=== PATIENT | male | born 1985 | race Asian ===

== ENCOUNTER 2017-10-22 15:55 | Inpatient (IN) | payer OTHER ==
[2017-10-22 18:02] VITALS: BMI 25.0
--- NOTE | 2017-10-22 20:31 | HP ---
CIWA Score - CIWA Score Nausea/Vomitin-Int. Nausea w/Dry Heave Muscle Tremors: 4-Moderate,w/Arms Extend Anxiety: 4-Mod. Anxious/Guarded Agitation: 4-Moderately Restless Paroxysmal Sweats: No Perspiration Orientation: 2-Disoriented Date<2 days Tacttile Disturbances: 2-Mild Itch/Numbness/Burn Auditory Disturbances: 0-None Visual Disturbances: 0-None Headache: 0-None Present CIWA-Ar Total Score: 20 Admission ROS S - HPI Chief Complaint: "I NEED HELP WITH ALCOHOL" Allergies/Adverse Reactions: Allergies Allergy/AdvReac Type Severity Reaction Status Date / Time No Known Allergies Allergy Verified 10/22/17 19:17 History of Present Illness: 32 Y.O. MALE WITH LONG HX/O ALCOHOLISM HERE FOR DETOX. CLIENT WAS REFERRED BY [facility] AFTER BEING STABILIZED FOR WITHDRAWAL SX'S. THIS IS CLIENTS FIRST TIME IN DETOX. HE HAS CEREBRAL PALSY. DENIES ANY SIGNIFICANT CLEAN TIME. Exam Limitations: Clinical Condition, Physical Impairment (AMBULATES WITH WALKER AND CANE. WC FOR LONG DISTANCE), Other (CEREBRAL PALSY) - Ebola screening Have you traveled outside of the country in the last 21 days: No (N) Have you had contact with anyone from an Ebola affected area: No Have you been sick,other than usual withdrawal symptoms: No Do you have a fever: No - Review of Systems Constitutional: Chills, Loss of Appetite, Night Sweats, Changes in sleep EENT: reports: No Symptoms Reported Respiratory: reports: No Symptoms reported Cardiac: reports: No Symptoms Reported GI: reports: Nausea, Poor Appetite, Poor Fluid Intake, Abdominal cramping, Other (DRY HEAVES) : reports: Incontinence (AT TIMES WEARS INCONTINENT BRIEFS) Musculoskeletal: reports: No Symptoms Reported Integumentary: reports: No Symptoms Reported Neuro: reports: Seizure (ETOH RELATED), Tremors, Unsteady Gait, Ataxia, Other ( CEREBRAL PALSY) Endocrine: reports: No Symptoms Reported Hematology: reports: No Symptoms Reported Psychiatric: reports: Anxious Other Systems: Reviewed and Negative Patient History - Patient Medical History Hx Anemia: No Hx Asthma: No Hx Chronic Obstructive Pulmonary Disease (COPD): No Hx Cancer: No Hx Cardiac Disorders: No Hx Congestive Heart Failure: No Hx Hypertension: No Hx Hypercholesterolemia: No Hx Pacemaker: No HX Cerebrovascular Accident: No Hx Seizures: Yes (alcohol related 4 mos) Hx Dementia: No Hx Diabetes: No Hx Gastrointestinal Disorders: No Hx Liver Disease: No Hx Genitourinary Disorders: No Hx Sexually Transmitted Disorders: No Hx Renal Disease (ESRD): No Hx Thyroid Disease: No Hx Human Immunodeficiency Virus (HIV): No Hx Hepatitis C: No Hx Depression: No Hx Suicide Attempt: No Hx Bipolar Disorder: No Hx Schizophrenia: No Other Medical History: DENIES - Patient Surgical History Past Surgical History: No - PPD History 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 History Hx Alcohol Use: Yes Hx Substance Use: Yes Substance Use Type: Alcohol Hx Substance Use Treatment: No - Substances Abused Alcohol Route: Oral Frequency: Daily Amount used: vodka 1 pint Age of first use: 17 Date of Last Use: 10/22/17 Family Disease History - Family Disease History Family Disease History: Diabetes: Father (HTN), Mother (HTN), Heart Disease: Father, Mother Admission Physical Exam BHS - Vital Signs Vital Signs: Vital Signs - 24 hr 10/22/17 18:00 Temperature 98.1 F Pulse Rate 102 H Respiratory 20 Rate Blood Pressure 147/97 - Physical General Appearance: Yes: Appropriately Dressed, Mild Distress, Tremorous, Anxious, Other (PT WITH CEREBRAL PALSY, ATAXIA POOR COORDINATION) HEENTM: Yes: EOMI, Normocephalic, Normal Voice, ADALBERTO, Pharynx Normal Respiratory: Yes: Chest Non-Tender, Lungs Clear, Normal Breath Sounds, No Respiratory Distress, No Accessory Muscle Use Neck: Yes: No masses,lesions,Nodules, Supple, Trachea in good position Breast: Yes: Breast Exam Deferred Cardiology: Yes: Regular Rhythm, Regular Rate, S1, S2 Abdominal: Yes: Normal Bowel Sounds, Non Tender, Soft Genitourinary: Yes: Within Normal Limits Back: Yes: Normal Inspection Musculoskeletal: Yes: Other (ATAXIA, POOR HAND AND LEG COORDINATION,) Extremities: Yes: Normal Capillary Refill, Non-Tender, Tremors Neurological: Yes: Alert, Other (CEREBRAL PALSY) Integumentary: Yes: Normal Color, Dry, Warm Lymphatic: Yes: Within Normal Limits - Diagnostic (1) Alcohol dependence with uncomplicated withdrawal Current Visit: Yes Status: Chronic (2) Cerebral palsy Current Visit: Yes Status: Chronic Qualifiers: Cerebral palsy type: unspecified type Qualified Code(s): G80.9 - Cerebral palsy, unspecified Cleared for Admission [facility] - Detox or Rehab [facility] Level of Care: Medically Managed Detox Regimen/Protocol: Librium S Breath Alcohol Content Breath Alcohol Content: 0 Urine Drug Screen - Results Drug Screen Negative: No Urine Drug Screen Results: BZO-Benzodiazepines
[2017-10-22] MEDS ORDERED: guaiFENesin/D-METHORPHAN HB 10 ML UNIT-DOSE CUPS PO PRN (20:44)
[2017-10-22] MEDS ORDERED: MAGNESIUM HYDROX 2400MG/30ML ORAL SUSPENSION 30 ML CUP PO PRN (20:44)
[2017-10-22] MEDS ORDERED: chlordiazePOXIDE HCL 25 MG CAPSULE PO PRN (20:44)
[2017-10-22] MEDS ORDERED: MAGNESIUM CITRATE 300 ML BOTTLE PO PRN (20:44)
[2017-10-22] MEDS ORDERED: P-EPHED 60MG/TRIPROLIDI 2.5MG TABLET PO PRN (20:44)
[2017-10-22] MEDS ORDERED: IBUPROFEN 400 MG TABLET (FP) PO PRN (20:44)
[2017-10-22] MEDS ORDERED: MENTHOL/PHENOL 1 EACH UD MM PRN (20:44)
[2017-10-22] MEDS ORDERED: MAG HYDROX/AL HYDROX/SIMETH 30 ML UNIT-DOSE CUP PO PRN (20:44)
[2017-10-22] MEDS ORDERED: hydrOXYzine PAMOATE 50 MG CAPSULE (FP) PO PRN (20:44)
[2017-10-22] MEDS ORDERED: ACETAMINOPHEN 325 MG TABLET (FP) PO PRN (20:44)
[2017-10-22] MEDS ORDERED: LOPERAMIDE HCL 2 MG CAPSULE PO PRN (20:44)
[2017-10-22] MEDS ORDERED: MELATONIN 5 MG TABLETS PO PRN (21:14)
[2017-10-22] MEDS ORDERED: MELATONIN 5 MG TABLETS PO SCH (22:00)
[2017-10-22] MEDS: chlordiazePOXIDE HCL 25 MG CAPSULE PO SCH (22:58)
[2017-10-22] MEDS: THIAMINE HCL 100 MG TABLET (FP) PO SCH (22:59)
[2017-10-23 00:34] LABS: URINE APPEARANCE CLEAR; URINE BILIRUBIN NEGATIVE (<2.0 mg/dL); URINE BLOOD NEGATIVE (NEGATIVE); URINE COLOR AMBER; URINE GLUCOSE (UA) NEGATIVE (NEGATIVE); URINE KETONE NEGATIVE (NEGATIVE); URINE LEUK ESTERASE NEGATIVE (NEGATIVE); URINE NITRITE NEGATIVE (NEGATIVE); URINE UROBILINOGEN 4.0 E.U/dl mg/dL (0.2-1.0)
[2017-10-23 00:37] LABS: URINE PROTEIN 1+ (NEGATIVE)
[2017-10-23 00:49] LABS: EPI CELLS RARE /HPF (FEW); URINE HYALINE CAST 1 /lpf; URINE MUCUS RARE
[2017-10-23] MEDS: chlordiazePOXIDE HCL 25 MG CAPSULE PO SCH ×4 (06:00→22:29)
[2017-10-23 10:11] LABS: HEMATOCRIT 36.3 % (35.4-49); HEMOGLOBIN 12.4 GM/dL (11.7-16.9); MCH 34.7 pg (25.7-33.7); MCHC 34.2 g/dl (32.0-35.9); MEAN CELL VOLUME 101.4 fl (80-96); MEAN PLT VOLUME 9.1 fl (7.5-11.1); RBC 3.58 M/mm3 (4.00-5.60); RDW 14.1 % (11.9-15.9); WHITE BLOOD COUNT 4.7 K/mm3 (4.0-10.0)
[2017-10-23 10:19] LABS: PLATELET COUNT 36 K/MM3 (134-434)
[2017-10-23 10:37] LABS: ALBUMIN 3.7 g/dl (3.4-5.0); ANION GAP 12 (8-16); BLOOD UREA NITROGEN 8 mg/dL (7-18); CALCIUM 8.9 mg/dL (8.5-10.1); CHLORIDE 99 mmol/L (98-107); CO2 28 mmol/L (21-32); POTASSIUM 3.4 mmol/L (3.5-5.1); SODIUM 139 mmol/L (136-145)
[2017-10-23 10:43] LABS: ALK PHOS 110 U/L (45-117); BILIRUBIN,TOTAL 7.4 mg/dL (0.2-1.0); CREATININE 0.6 mg/dL (0.7-1.3); GLUCOSE,RANDOM 86 mg/dL (74-106); SGOT/AST 57 U/L (15-37); SGPT/ALT 33 U/L (12-78); TOT PROT 7.8 g/dl (6.4-8.2)
[2017-10-23] MEDS: PRENATAL VITAMINS W/ FOLIC ACID TABLET (FP) PO SCH (11:27)
--- NOTE | 2017-10-23 12:43 | PN ---
[facility] CIWA - CIWA Score Nausea/Vomitin-No Nausea/No Vomiting Muscle Tremors: 4-Moderate,w/Arms Extend Anxiety: 4-Mod. Anxious/Guarded Agitation: 3 Paroxysmal Sweats: 1-Minimal Palms Moist Orientation: 0-Oriented Tacttile Disturbances: 3-Moderate Itch/Numb/Burn Auditory Disturbances: 0-None Visual Disturbances: 0-None Headache: 0-None Present CIWA-Ar Total Score: 15 S Progress Note (SOAP) Subjective: C/O TREMORS,PAIN ON BOTH ARMS. DENIES TRUAMA. REPORTS HX CEREBRAL PALSY. USING WC FOR AMBULATION. Objective: 10/23/17 12:40 Vital Signs Temperature 97.8 F 10/23/17 09:41 Pulse Rate 93 H 10/23/17 09:41 Respiratory Rate 20 10/23/17 09:41 Blood Pressure 153/89 10/23/17 09:41 O2 Sat by Pulse Oximetry (%) Laboratory Last Values WBC 4.7 K/mm3 (4.0-10.0) 10/23/17 07:00 RBC 3.58 M/mm3 (4.00-5.60) L 10/23/17 07:00 Hgb 12.4 GM/dL (11.7-16.9) 10/23/17 07:00 Hct 36.3 % (35.4-49) 10/23/17 07:00 MCV 101.4 fl (80-96) H 10/23/17 07:00 MCH 34.7 pg (25.7-33.7) H 10/23/17 07:00 MCHC 34.2 g/dl (32.0-35.9) 10/23/17 07:00 RDW 14.1 % (11.9-15.9) 10/23/17 07:00 Plt Count 36 K/MM3 (134-434) L* 10/23/17 07:00 MPV 9.1 fl (7.5-11.1) 10/23/17 07:00 Sodium 139 mmol/L (136-145) 10/23/17 07:00 Potassium 3.4 mmol/L (3.5-5.1) L 10/23/17 07:00 Chloride 99 mmol/L (98-107) 10/23/17 07:00 Carbon Dioxide 28 mmol/L (21-32) 10/23/17 07:00 Anion Gap 12 (8-16) 10/23/17 07:00 BUN 8 mg/dL (7-18) 10/23/17 07:00 Creatinine 0.6 mg/dL (0.7-1.3) L 10/23/17 07:00 Creat Clearance w eGFR > 60 (>60) 10/23/17 07:00 Random Glucose 86 mg/dL (74-106) 10/23/17 07:00 Calcium 8.9 mg/dL (8.5-10.1) 10/23/17 07:00 Total Bilirubin 7.4 mg/dL (0.2-1.0) H 10/23/17 07:00 AST 57 U/L (15-37) H 10/23/17 07:00 ALT 33 U/L (12-78) 10/23/17 07:00 Alkaline Phosphatase 110 U/L (45-117) 10/23/17 07:00 Total Protein 7.8 g/dl (6.4-8.2) 10/23/17 07:00 Albumin 3.7 g/dl (3.4-5.0) 10/23/17 07:00 Urine Color Erika 10/22/17 22:14 Urine Appearance Clear 10/22/17 22:14 Urine pH 7.0 (5.0-8.0) 10/22/17 22:14 Ur Specific [place] 1.021 (1.001-1.035) 10/22/17 22:14 Urine Protein 1+ (NEGATIVE) H 10/22/17 22:14 Urine Glucose (UA) Negative (NEGATIVE) 10/22/17 22:14 Urine Ketones Negative (NEGATIVE) 10/22/17 22:14 Urine Blood Negative (NEGATIVE) 10/22/17 22:14 Urine Nitrite Negative (NEGATIVE) 10/22/17 22:14 Urine Bilirubin Negative (<2.0 mg/dL) 10/22/17 22:14 Urine Urobilinogen 4.0 e.u/dl mg/dL (0.2-1.0) 10/22/17 22:14 Ur Leukocyte Esterase Negative (NEGATIVE) 10/22/17 22:14 Urine WBC (Auto) 1 /hpf (3-5) 10/22/17 22:14 Urine RBC (Auto) 2 /hpf (0-3) 10/22/17 22:14 Ur Epithelial Cells Rare /HPF (FEW) 10/22/17 22:14 Hyaline Casts 1 /lpf 10/22/17 22:14 Urine Mucus Rare 10/22/17 22:14 RPR Titer Nonreactive (NONREACTIVE) 10/23/17 07:00 Plt count 36 Assessment: 10/23/17 12:40 WITHDRAWAL SX BORDERLINE HYPOKALEMIA LOW PLATELET Plan: CONTINUE DETOX KCL LIQ 20 MEQ PO DAILY INCREASE PO FLUIDS URINAL AT BEDSIDE
--- NOTE | 2017-10-23 12:57 | CONSULT ---
[facility] Psychiatric Consult - Data Date of interview: 10/23/17 Admission source: [facility] Identifying data: First admission to [facility] for this 32 y/o [place]born male seeking detox treatment on for alcohol dependence.Patient is single without children,domiciled (lives with his parents),disabled (cerebral palsy) and supported on SSI benefits. Substance Abuse History: Discussed with patient.Mr Rodriguez admits to a 15 year history of alcohol abuse (consumes 1 pint of vodka daily). Details in the [facility] report as follows : Smoking history: Never smoked. Have you smoked in the past 12 months: No. Cigars Per Day: 0. Hx Chewing Tobacco Use: No. Initiated information on smoking cessation: No. - Substance & Tx. History. Hx Alcohol Use: Yes. Hx Substance Use: Yes. Substance Use Type: Alcohol. Hx Substance Use Treatment: No. - Substances Abused. Alcohol. Route: Oral. Frequency: Daily. Amount used: vodka 1 pint. Age of first use: 17. Date of Last Use: 10/22/17 Medical History: History of cerebral palsy (wheelchair-bound) and withdrawal- related seizures. Psychiatric History: Patient denies. Physical/Sexual Abuse/Trauma History: Patient denies history of abuse. Additional Comment: Urine Drug Screen Results: BZO-Benzodiazepines.Noted. Mental Status Exam - Mental Status Exam Alert and Oriented to: Time, Place, Person Cognitive Function: Grossly Intact Patient Appearance: Well Groomed (found lying in bed,fully awake) Mood: Withdrawn, Anxious Affect: Mood Congruent Patient Behavior: Appropriate (friendly), Cooperative Speech Pattern: Clear (coherent and relevant) Voice Loudness: Normal Thought Process: Goal Oriented Thought Disorder: Not Present Hallucinations: Denies Suicidal Ideation: Denies Homicidal Ideation: Denies Insight/Judgement: Poor Sleep: Well Appetite: Good (as per self-report) Gait/Station: Other (patient is disabled ; needs staff for transfer from bed to wheelchair) Psychiatric Findings - Problem List ([place] 1, 2,3) (1) Alcohol dependence with uncomplicated withdrawal Current Visit: Yes Status: Acute - Initial Treatment Plan Initial Treatment Plan: Psychoeducation and support.Nursing care.Falls precautions.Detoxification in progress.Observation.
[2017-10-23] MEDS ORDERED: POTASSIUM CHLORIDE ORAL LIQUID 20 MEQ/15 ML PO ONE (13:50)
--- NOTE | 2017-10-23 14:45 | PN ---
[facility] Progress Note Note: PT HAS JUANA HEMATURIA LATE THIS MORNING. DENIED ANY EPISODE EARLIER TODAY OR LAST NIGHT. PT IS HERE FOR ALCOHOL DETOX ADMITTED ON 10/22/17. PT HAS A HX OF CEREBRAL PALSY WITH UNSTEADY GAIT AND ALCOHOL RELATED SEIZURES. NEEDS ASSISTANCE WITH MOST ADLs. USES WHEEL CHAIR FOR AMBULATION HERE BUT REPORTS USE OF CANE AND WALKER AT HOME. Vital Signs 10/23/17 10/23/17 09:41 13:47 Temperature 97.8 F 98.9 F Pulse Rate 93 H 82 Respiratory 20 20 Rate Blood Pressure 153/89 130/84 Laboratory Last Values WBC 4.7 K/mm3 (4.0-10.0) 10/23/17 07:00 RBC 3.58 M/mm3 (4.00-5.60) L 10/23/17 07:00 Hgb 12.4 GM/dL (11.7-16.9) 10/23/17 07:00 Hct 36.3 % (35.4-49) 10/23/17 07:00 MCV 101.4 fl (80-96) H 10/23/17 07:00 MCH 34.7 pg (25.7-33.7) H 10/23/17 07:00 MCHC 34.2 g/dl (32.0-35.9) 10/23/17 07:00 RDW 14.1 % (11.9-15.9) 10/23/17 07:00 Plt Count 36 K/MM3 (134-434) L* 10/23/17 07:00 MPV 9.1 fl (7.5-11.1) 10/23/17 07:00 Sodium 139 mmol/L (136-145) 10/23/17 07:00 Potassium 3.4 mmol/L (3.5-5.1) L 10/23/17 07:00 Chloride 99 mmol/L (98-107) 10/23/17 07:00 Carbon Dioxide 28 mmol/L (21-32) 10/23/17 07:00 Anion Gap 12 (8-16) 10/23/17 07:00 BUN 8 mg/dL (7-18) 10/23/17 07:00 Creatinine 0.6 mg/dL (0.7-1.3) L 10/23/17 07:00 Creat Clearance w eGFR > 60 (>60) 10/23/17 07:00 Random Glucose 86 mg/dL (74-106) 10/23/17 07:00 Calcium 8.9 mg/dL (8.5-10.1) 10/23/17 07:00 Total Bilirubin 7.4 mg/dL (0.2-1.0) H 10/23/17 07:00 AST 57 U/L (15-37) H 10/23/17 07:00 ALT 33 U/L (12-78) 10/23/17 07:00 Alkaline Phosphatase 110 U/L (45-117) 10/23/17 07:00 Total Protein 7.8 g/dl (6.4-8.2) 10/23/17 07:00 Albumin 3.7 g/dl (3.4-5.0) 10/23/17 07:00 Urine Color Erika 10/22/17 22:14 Urine Appearance Clear 10/22/17 22:14 Urine pH 7.0 (5.0-8.0) 10/22/17 22:14 Ur Specific [place] 1.021 (1.001-1.035) 10/22/17 22:14 Urine Protein 1+ (NEGATIVE) H 10/22/17 22:14 Urine Glucose (UA) Negative (NEGATIVE) 10/22/17 22:14 Urine Ketones Negative (NEGATIVE) 10/22/17 22:14 Urine Blood Negative (NEGATIVE) 10/22/17 22:14 Urine Nitrite Negative (NEGATIVE) 10/22/17 22:14 Urine Bilirubin Negative (<2.0 mg/dL) 10/22/17 22:14 Urine Urobilinogen 4.0 e.u/dl mg/dL (0.2-1.0) 10/22/17 22:14 Ur Leukocyte Esterase Negative (NEGATIVE) 10/22/17 22:14 Urine WBC (Auto) 1 /hpf (3-5) 10/22/17 22:14 Urine RBC (Auto) 2 /hpf (0-3) 10/22/17 22:14 Ur Epithelial Cells Rare /HPF (FEW) 10/22/17 22:14 Hyaline Casts 1 /lpf 10/22/17 22:14 Urine Mucus Rare 10/22/17 22:14 RPR Titer Nonreactive (NONREACTIVE) 10/23/17 07:00 PLATELAT 36 URINE OUTPUT WITH JUANA BLOOD REPEAT UA;UC ORDERED PLAN:DISCUSSED WITH DR. SANDOVAL AT [facility] ER AND PT WILL BE TRANSFERED TO THE ER VIA AMBULANCE FOR EVALUATION AND POSSIBLE TREATMENT.
[2017-10-23 16:45] LABS: URINE APPEARANCE CLEAR; URINE BILIRUBIN NEGATIVE (<2.0 mg/dL); URINE BLOOD NEGATIVE (NEGATIVE); URINE COLOR AMBER; URINE GLUCOSE (UA) NEGATIVE (NEGATIVE); URINE KETONE NEGATIVE (NEGATIVE); URINE LEUK ESTERASE NEGATIVE (NEGATIVE); URINE NITRITE NEGATIVE (NEGATIVE); URINE UROBILINOGEN 4.0 E.U/dl mg/dL (0.2-1.0)
[2017-10-23 16:51] LABS: URINE PROTEIN 1+ (NEGATIVE)
[2017-10-23] MEDS: THIAMINE HCL 100 MG TABLET (FP) PO SCH (22:29)
[2017-10-24] MEDS: chlordiazePOXIDE HCL 25 MG CAPSULE PO SCH ×3 (06:23→17:53)
[2017-10-24] MEDS: POTASSIUM CHLORIDE ORAL LIQUID 20 MEQ/15 ML PO SCH (10:47)
[2017-10-24] MEDS: PRENATAL VITAMINS W/ FOLIC ACID TABLET (FP) PO SCH (10:47)
--- NOTE | 2017-10-24 11:15 | PN ---
[facility] CIWA - CIWA Score Nausea/Vomitin-No Nausea/No Vomiting Muscle Tremors: 4-Moderate,w/Arms Extend Anxiety: 4-Mod. Anxious/Guarded Agitation: 2 Paroxysmal Sweats: No Perspiration Orientation: 0-Oriented Tacttile Disturbances: 3-Moderate Itch/Numb/Burn Auditory Disturbances: 0-None Visual Disturbances: 0-None Headache: 0-None Present CIWA-Ar Total Score: 13 S Progress Note (SOAP) Subjective: SLIGHT ANXIETY,TREMORS,DENIES BLOOD IN URINE SINCE LAST EPISODE YESTERDAY. Objective: 10/24/17 11:15 Vital Signs Temperature 96.3 F L 10/24/17 09:35 Pulse Rate 92 H 10/24/17 09:35 Respiratory Rate 20 10/24/17 09:35 Blood Pressure 131/96 10/24/17 09:35 O2 Sat by Pulse Oximetry (%) Laboratory Last Values WBC 4.7 K/mm3 (4.0-10.0) 10/23/17 07:00 RBC 3.58 M/mm3 (4.00-5.60) L 10/23/17 07:00 Hgb 12.4 GM/dL (11.7-16.9) 10/23/17 07:00 Hct 36.3 % (35.4-49) 10/23/17 07:00 MCV 101.4 fl (80-96) H 10/23/17 07:00 MCH 34.7 pg (25.7-33.7) H 10/23/17 07:00 MCHC 34.2 g/dl (32.0-35.9) 10/23/17 07:00 RDW 14.1 % (11.9-15.9) 10/23/17 07:00 Plt Count 36 K/MM3 (134-434) L* 10/23/17 07:00 MPV 9.1 fl (7.5-11.1) 10/23/17 07:00 Sodium 139 mmol/L (136-145) 10/23/17 07:00 Potassium 3.4 mmol/L (3.5-5.1) L 10/23/17 07:00 Chloride 99 mmol/L (98-107) 10/23/17 07:00 Carbon Dioxide 28 mmol/L (21-32) 10/23/17 07:00 Anion Gap 12 (8-16) 10/23/17 07:00 BUN 8 mg/dL (7-18) 10/23/17 07:00 Creatinine 0.6 mg/dL (0.7-1.3) L 10/23/17 07:00 Creat Clearance w eGFR > 60 (>60) 10/23/17 07:00 Random Glucose 86 mg/dL (74-106) 10/23/17 07:00 Calcium 8.9 mg/dL (8.5-10.1) 10/23/17 07:00 Total Bilirubin 7.4 mg/dL (0.2-1.0) H 10/23/17 07:00 AST 57 U/L (15-37) H 10/23/17 07:00 ALT 33 U/L (12-78) 10/23/17 07:00 Alkaline Phosphatase 110 U/L (45-117) 10/23/17 07:00 Total Protein 7.8 g/dl (6.4-8.2) 10/23/17 07:00 Albumin 3.7 g/dl (3.4-5.0) 10/23/17 07:00 Urine Color Erika 10/23/17 15:00 Urine Appearance Clear 10/23/17 15:00 Urine pH 9.0 (5.0-8.0) H D 10/23/17 15:00 Ur Specific [place] 1.015 (1.001-1.035) 10/23/17 15:00 Urine Protein 1+ (NEGATIVE) H 10/23/17 15:00 Urine Glucose (UA) Negative (NEGATIVE) 10/23/17 15:00 Urine Ketones Negative (NEGATIVE) 10/23/17 15:00 Urine Blood Negative (NEGATIVE) 10/23/17 15:00 Urine Nitrite Negative (NEGATIVE) 10/23/17 15:00 Urine Bilirubin Negative (<2.0 mg/dL) 10/23/17 15:00 Urine Urobilinogen 4.0 e.u/dl mg/dL (0.2-1.0) 10/23/17 15:00 Ur Leukocyte Esterase Negative (NEGATIVE) 10/23/17 15:00 Urine WBC (Auto) No seen /hpf (3-5) 10/23/17 15:00 Urine RBC (Auto) 0-3 /hpf (0-3) 10/23/17 15:00 Ur Epithelial Cells Rare /HPF (FEW) 10/22/17 22:14 Hyaline Casts 1 /lpf 10/22/17 22:14 Urine Mucus Rare 10/22/17 22:14 RPR Titer Nonreactive (NONREACTIVE) 10/23/17 07:00 Assessment: 10/24/17 11:15 WITHDRAWAL SX Plan: CONTINUE DETOX
[2017-10-24] MEDS: chlordiazePOXIDE 5 MG CAPSULE PO SCH (22:43)
[2017-10-24] MEDS: THIAMINE HCL 100 MG TABLET (FP) PO SCH (22:43)
[2017-10-25] MEDS: chlordiazePOXIDE 5 MG CAPSULE PO SCH ×3 (05:59→17:12)
[2017-10-25] MEDS: POTASSIUM CHLORIDE ORAL LIQUID 20 MEQ/15 ML PO SCH (11:12)
[2017-10-25] MEDS: PRENATAL VITAMINS W/ FOLIC ACID TABLET (FP) PO SCH (11:12)
--- NOTE | 2017-10-25 14:54 | PN ---
S Progress Note (SOAP) Subjective: DECREASED ANXIETY,TREMORS,BODYACHES. PT WAS ABLE TO WALK FROM ROOM TO HIS COUNSELORS OFFICE AND BACK UNATTENDED BUT WITH CLOSE MONITORING. PT REPORTS HE GOES TO AN OUTPATIENT PROGRAM BY [facility] AND WILL BE GOING BACK THERE AFTER DISCHARGE. Objective: 10/25/17 14:53 Vital Signs Temperature 96.6 F L 10/25/17 13:56 Pulse Rate 116 H 10/25/17 13:56 Respiratory Rate 18 10/25/17 13:56 Blood Pressure 127/96 10/25/17 13:56 O2 Sat by Pulse Oximetry (%) Laboratory Last Values WBC 4.7 K/mm3 (4.0-10.0) 10/23/17 07:00 RBC 3.58 M/mm3 (4.00-5.60) L 10/23/17 07:00 Hgb 12.4 GM/dL (11.7-16.9) 10/23/17 07:00 Hct 36.3 % (35.4-49) 10/23/17 07:00 MCV 101.4 fl (80-96) H 10/23/17 07:00 MCH 34.7 pg (25.7-33.7) H 10/23/17 07:00 MCHC 34.2 g/dl (32.0-35.9) 10/23/17 07:00 RDW 14.1 % (11.9-15.9) 10/23/17 07:00 Plt Count 36 K/MM3 (134-434) L* 10/23/17 07:00 MPV 9.1 fl (7.5-11.1) 10/23/17 07:00 Sodium 139 mmol/L (136-145) 10/23/17 07:00 Potassium 3.4 mmol/L (3.5-5.1) L 10/23/17 07:00 Chloride 99 mmol/L (98-107) 10/23/17 07:00 Carbon Dioxide 28 mmol/L (21-32) 10/23/17 07:00 Anion Gap 12 (8-16) 10/23/17 07:00 BUN 8 mg/dL (7-18) 10/23/17 07:00 Creatinine 0.6 mg/dL (0.7-1.3) L 10/23/17 07:00 Creat Clearance w eGFR > 60 (>60) 10/23/17 07:00 Random Glucose 86 mg/dL (74-106) 10/23/17 07:00 Calcium 8.9 mg/dL (8.5-10.1) 10/23/17 07:00 Total Bilirubin 7.4 mg/dL (0.2-1.0) H 10/23/17 07:00 AST 57 U/L (15-37) H 10/23/17 07:00 ALT 33 U/L (12-78) 10/23/17 07:00 Alkaline Phosphatase 110 U/L (45-117) 10/23/17 07:00 Total Protein 7.8 g/dl (6.4-8.2) 10/23/17 07:00 Albumin 3.7 g/dl (3.4-5.0) 10/23/17 07:00 Urine Color Erika 10/23/17 15:00 Urine Appearance Clear 10/23/17 15:00 Urine pH 9.0 (5.0-8.0) H D 10/23/17 15:00 Ur Specific [place] 1.015 (1.001-1.035) 10/23/17 15:00 Urine Protein 1+ (NEGATIVE) H 10/23/17 15:00 Urine Glucose (UA) Negative (NEGATIVE) 10/23/17 15:00 Urine Ketones Negative (NEGATIVE) 10/23/17 15:00 Urine Blood Negative (NEGATIVE) 10/23/17 15:00 Urine Nitrite Negative (NEGATIVE) 10/23/17 15:00 Urine Bilirubin Negative (<2.0 mg/dL) 10/23/17 15:00 Urine Urobilinogen 4.0 e.u/dl mg/dL (0.2-1.0) 10/23/17 15:00 Ur Leukocyte Esterase Negative (NEGATIVE) 10/23/17 15:00 Urine WBC (Auto) No seen /hpf (3-5) 10/23/17 15:00 Urine RBC (Auto) 0-3 /hpf (0-3) 10/23/17 15:00 Ur Epithelial Cells Rare /HPF (FEW) 10/22/17 22:14 Hyaline Casts 1 /lpf 10/22/17 22:14 Urine Mucus Rare 10/22/17 22:14 RPR Titer Nonreactive (NONREACTIVE) 10/23/17 07:00 Assessment: 10/25/17 14:53 WITHDRAWAL SX Plan: CONTINUE DETOX
[2017-10-25] MEDS: THIAMINE HCL 100 MG TABLET (FP) PO SCH (22:48)
[2017-10-25] MEDS: chlordiazePOXIDE HCL 10 MG CAPSULE PO SCH (22:48)
[2017-10-26] MEDS: chlordiazePOXIDE HCL 10 MG CAPSULE PO SCH (05:55)
[2017-10-26 09:42] VITALS: BP 104/70; PULSE 74; TEMP 98.8
[2017-10-26] MEDS: POTASSIUM CHLORIDE ORAL LIQUID 20 MEQ/15 ML PO SCH (10:14)
[2017-10-26] MEDS: PRENATAL VITAMINS W/ FOLIC ACID TABLET (FP) PO SCH (10:15)
--- NOTE | 2017-10-26 10:19 | PN ---
S Progress Note (SOAP) Subjective: DETOX COMPLETED. ALERT O X 3. OOB AMBULATING WITH NO DISTRESS.PT MADE A PHONE CALL TO HIS MOTHER THIS MORNING TO BE PICKED UP. Objective: 10/26/17 10:18 Vital Signs Temperature 98.8 F 10/26/17 09:41 Pulse Rate 74 10/26/17 09:41 Respiratory Rate 18 10/26/17 09:41 Blood Pressure 104/70 10/26/17 09:41 O2 Sat by Pulse Oximetry (%) Laboratory Last Values WBC 4.7 K/mm3 (4.0-10.0) 10/23/17 07:00 RBC 3.58 M/mm3 (4.00-5.60) L 10/23/17 07:00 Hgb 12.4 GM/dL (11.7-16.9) 10/23/17 07:00 Hct 36.3 % (35.4-49) 10/23/17 07:00 MCV 101.4 fl (80-96) H 10/23/17 07:00 MCH 34.7 pg (25.7-33.7) H 10/23/17 07:00 MCHC 34.2 g/dl (32.0-35.9) 10/23/17 07:00 RDW 14.1 % (11.9-15.9) 10/23/17 07:00 Plt Count 36 K/MM3 (134-434) L* 10/23/17 07:00 MPV 9.1 fl (7.5-11.1) 10/23/17 07:00 Sodium 139 mmol/L (136-145) 10/23/17 07:00 Potassium 3.4 mmol/L (3.5-5.1) L 10/23/17 07:00 Chloride 99 mmol/L (98-107) 10/23/17 07:00 Carbon Dioxide 28 mmol/L (21-32) 10/23/17 07:00 Anion Gap 12 (8-16) 10/23/17 07:00 BUN 8 mg/dL (7-18) 10/23/17 07:00 Creatinine 0.6 mg/dL (0.7-1.3) L 10/23/17 07:00 Creat Clearance w eGFR > 60 (>60) 10/23/17 07:00 Random Glucose 86 mg/dL (74-106) 10/23/17 07:00 Calcium 8.9 mg/dL (8.5-10.1) 10/23/17 07:00 Total Bilirubin 7.4 mg/dL (0.2-1.0) H 10/23/17 07:00 AST 57 U/L (15-37) H 10/23/17 07:00 ALT 33 U/L (12-78) 10/23/17 07:00 Alkaline Phosphatase 110 U/L (45-117) 10/23/17 07:00 Total Protein 7.8 g/dl (6.4-8.2) 10/23/17 07:00 Albumin 3.7 g/dl (3.4-5.0) 10/23/17 07:00 Urine Color Erika 10/23/17 15:00 Urine Appearance Clear 10/23/17 15:00 Urine pH 9.0 (5.0-8.0) H D 10/23/17 15:00 Ur Specific [place] 1.015 (1.001-1.035) 10/23/17 15:00 Urine Protein 1+ (NEGATIVE) H 10/23/17 15:00 Urine Glucose (UA) Negative (NEGATIVE) 10/23/17 15:00 Urine Ketones Negative (NEGATIVE) 10/23/17 15:00 Urine Blood Negative (NEGATIVE) 10/23/17 15:00 Urine Nitrite Negative (NEGATIVE) 10/23/17 15:00 Urine Bilirubin Negative (<2.0 mg/dL) 10/23/17 15:00 Urine Urobilinogen 4.0 e.u/dl mg/dL (0.2-1.0) 10/23/17 15:00 Ur Leukocyte Esterase Negative (NEGATIVE) 10/23/17 15:00 Urine WBC (Auto) No seen /hpf (3-5) 10/23/17 15:00 Urine RBC (Auto) 0-3 /hpf (0-3) 10/23/17 15:00 Ur Epithelial Cells Rare /HPF (FEW) 10/22/17 22:14 Hyaline Casts 1 /lpf 10/22/17 22:14 Urine Mucus Rare 10/22/17 22:14 RPR Titer Nonreactive (NONREACTIVE) 10/23/17 07:00 Assessment: 10/26/17 10:19 NAD Plan: D/C PT TODAY TO BE PICKED UP BY HIS MOTHER.
--- NOTE | 2017-10-26 10:25 | DS ---
[facility] Detox Discharge Summary Admission Date: 10/22/17 Discharge Date: 10/26/17 - History Present History: Alcohol Dependence Additional Comments: DETOX COMPLETED. ALERT O X 3. NAD. 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. Pertinent Past History: PLEASE SEE DX BELOW. - Physical Exam Results Vital Signs: Vital Signs Temperature 98.8 F 10/26/17 09:41 Pulse Rate 74 10/26/17 09:41 Respiratory Rate 18 10/26/17 09:41 Blood Pressure 104/70 10/26/17 09:41 O2 Sat by Pulse Oximetry (%) Pertinent Admission Physical Exam Findings: WITHDRAWAL SX Laboratory Last Values WBC 4.7 K/mm3 (4.0-10.0) 10/23/17 07:00 RBC 3.58 M/mm3 (4.00-5.60) L 10/23/17 07:00 Hgb 12.4 GM/dL (11.7-16.9) 10/23/17 07:00 Hct 36.3 % (35.4-49) 10/23/17 07:00 MCV 101.4 fl (80-96) H 10/23/17 07:00 MCH 34.7 pg (25.7-33.7) H 10/23/17 07:00 MCHC 34.2 g/dl (32.0-35.9) 10/23/17 07:00 RDW 14.1 % (11.9-15.9) 10/23/17 07:00 Plt Count 36 K/MM3 (134-434) L* 10/23/17 07:00 MPV 9.1 fl (7.5-11.1) 10/23/17 07:00 Sodium 139 mmol/L (136-145) 10/23/17 07:00 Potassium 3.4 mmol/L (3.5-5.1) L 10/23/17 07:00 Chloride 99 mmol/L (98-107) 10/23/17 07:00 Carbon Dioxide 28 mmol/L (21-32) 10/23/17 07:00 Anion Gap 12 (8-16) 10/23/17 07:00 BUN 8 mg/dL (7-18) 10/23/17 07:00 Creatinine 0.6 mg/dL (0.7-1.3) L 10/23/17 07:00 Creat Clearance w eGFR > 60 (>60) 10/23/17 07:00 Random Glucose 86 mg/dL (74-106) 10/23/17 07:00 Calcium 8.9 mg/dL (8.5-10.1) 10/23/17 07:00 Total Bilirubin 7.4 mg/dL (0.2-1.0) H 10/23/17 07:00 AST 57 U/L (15-37) H 10/23/17 07:00 ALT 33 U/L (12-78) 10/23/17 07:00 Alkaline Phosphatase 110 U/L (45-117) 10/23/17 07:00 Total Protein 7.8 g/dl (6.4-8.2) 10/23/17 07:00 Albumin 3.7 g/dl (3.4-5.0) 10/23/17 07:00 Urine Color Erika 10/23/17 15:00 Urine Appearance Clear 10/23/17 15:00 Urine pH 9.0 (5.0-8.0) H D 10/23/17 15:00 Ur Specific [place] 1.015 (1.001-1.035) 10/23/17 15:00 Urine Protein 1+ (NEGATIVE) H 10/23/17 15:00 Urine Glucose (UA) Negative (NEGATIVE) 10/23/17 15:00 Urine Ketones Negative (NEGATIVE) 10/23/17 15:00 Urine Blood Negative (NEGATIVE) 10/23/17 15:00 Urine Nitrite Negative (NEGATIVE) 10/23/17 15:00 Urine Bilirubin Negative (<2.0 mg/dL) 10/23/17 15:00 Urine Urobilinogen 4.0 e.u/dl mg/dL (0.2-1.0) 10/23/17 15:00 Ur Leukocyte Esterase Negative (NEGATIVE) 10/23/17 15:00 Urine WBC (Auto) No seen /hpf (3-5) 10/23/17 15:00 Urine RBC (Auto) 0-3 /hpf (0-3) 10/23/17 15:00 Ur Epithelial Cells Rare /HPF (FEW) 10/22/17 22:14 Hyaline Casts 1 /lpf 10/22/17 22:14 Urine Mucus Rare 10/22/17 22:14 RPR Titer Nonreactive (NONREACTIVE) 10/23/17 07:00 HEMATURIA RESOLVED. 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
== END 2017-10-26 10:15 | disposition home or self-care (01) | DRG 775 ==
LOC: YASAS 15:55 → Y3N 19:19
PROVIDERS: ADMIT Internal Medicine; ATTEND Internal Medicine
PROC: HZ2ZZZZ Detoxification Services for Substance Abuse Treatment (ICD-10-PCS; principal; 2017-10-22)
DX: F10.230 Alcohol dependence with withdrawal, uncomplicated (principal); G40.509 Epileptic seizures related to external causes, not intractable, without status epilepticus; G80.4 Ataxic cerebral palsy; R31.0 Gross hematuria; R26.89 Other abnormalities of gait and mobility; Z99.3 Dependence on wheelchair; Z99.89 Dependence on other enabling machines and devices
CPT/HCPCS: 36415; 71045-TC-FY; 80053; 81003; 81015; 85027; 86593; 87086